=== PATIENT | female | born 1970 | race Caucasian/White ===

== ENCOUNTER 2016-07-24 07:18 | Observation (INO) | payer OTHER ==
[2016-07-24] MEDS ORDERED: CEFAZOLIN 1 GM VIAL ONE (07:27)
[2016-07-24] MEDS ORDERED: METHYLENE BLUE 10 MG/ML VIAL ONE (07:36)
[2016-07-24] MEDS ORDERED: BUPIVACAINE 0.25% 30 ML VIAL ONE (07:36)
[2016-07-24] MEDS ORDERED: HYDROmorphone 1 MG INJECTION IV PRN ×2 (08:32)
[2016-07-24] MEDS ORDERED: FENTANYL 100 MCG/2 ML VIAL IV PRN ×2 (08:32)
[2016-07-24] MEDS ORDERED: MEPERIDINE 25 MG/ML TUBEX IV PRN (08:32)
[2016-07-24] MEDS ORDERED: LABETALOL 20 MG/4 ML SYRINGE IV PRN (08:32)
[2016-07-24] MEDS ORDERED: ONDANSETRON HCL 4 MG/2 ML VIAL IV PRN ×2 (08:32→11:15)
[2016-07-24] MEDS ORDERED: hydrALAZINE 20 MG/ML VIAL IV PRN (08:32)
[2016-07-24] MEDS ORDERED: ONDANSETRON HCL 4 MG ODT TAB PO PRN (08:32)
--- NOTE | 2016-07-24 08:39 | HIM.ANES ---
Anesthesia Evaluation & Plan Diagnoses: ABNORMAL UTERINE AND VAGINAL BLEEDING, UNSPECIFIED (07/24/16) DYSMENORRHEA, UNSPECIFIED (07/24/16) PELVIC AND PERINEAL PAIN (07/24/16) Consented Procedure: TOTAL LAPAROSCOPIC HYSTERECTOMY, AND POSSIBLY TOTAL ABDOMINAL HYSTERECTOMY,CYSTOSCOPY AND BILATERAL SALPINGOOOPHORECTOMY - Focused Review of Systems Cardiac History: No: Hx Cardiac Disorders HEENT: Yes: Hx Vision Problem (CONTACTS), Other HEENT Problems Hx Other HEENT Problems: SEASONAL ALLERGIES Gastrointestinal: No: Hx Gastrointestinal Disorders Neurological/Musculoskeletal: No: Hx Neurological Disorders Psychological: No Hx Mental/Emotional Disorders Blood/Autoimmune: No: Hx AIDS, Hx Hepatitis (type) Smoking Status: Former smoker Surgical History: Yes: Cholecystectomy (2013) Other Surgical History: 2 C-SECTIONS - Focused Physical Exam NPO since: 07/23/161999 Mallampati: Class II Thyromental Distance: Greater than 3 Neck: Full Range of Motion Dental: Normal - no significant findings Cardiovascular/Chest: Normal Respiratory: Lungs clear Any problems with anesthesia, including nausea and vomiting?: No Any relatives with a history of Malignant Hyperthermia?: No Beta Nikolas given (if appropriate): N/A Does the patient have a history of Motion Sickness-: No Other: Allergies Allergy/AdvReac Type Severity Reaction Status Date / Time Sulfa (Sulfonamide Allergy Hives* Verified 07/24/16 07:41 Antibiotics) Home Medications Medication Instructions Recorded Last Taken Type Dextroamphetamine/Amphetamine 15 mg PO DAILY PRN 09/15/12 07/17/16 History [Adderall 15 mg Tablet] Nitrofurantoin Macrocrystal 100 mg PO DAILY PRN 09/15/12 07/22/16 21:00 History [Macrodantin] Zolpidem Tartrate [Ambien] 10 mg PO HS PRN 07/19/16 07/23/16 21:00 History Height and Weight Patient's height 5 ft 11 in Patient's weight 105.233 kg BMI 34.2 Vital Signs Temperature 97.8 F 07/24/16 07:30 Pulse Rate 98 07/24/16 07:30 Respiratory Rate 18 07/24/16 07:30 Blood Pressure 146/86 07/24/16 07:30 Pulse Oxygen Saturation 98 07/24/16 07:30 - Anesthetic Plan Anesthesia Type: General ASA Class: 2 -: I have examined this patient and reviewed the medical record. The patient has been assessed prior to anesthesia. Risks and benefits of anesthesia and anesthetic technique options have been discussed and all questions answered. The patient accepts the risk and desires me to proceed with the planned anesthetic.
[2016-07-24] MEDS ORDERED: MIDAZOLAM 2 MG/2 ML VIAL IV ONE ×2 (09:10→10:00)
[2016-07-24] MEDS ORDERED: MIDAZOLAM 2 MG/2 ML VIAL ONE (09:11)
--- NOTE | 2016-07-24 09:32 | SC.ANESPOS ---
Post-Anesthesia Note LOC: [place] on Calling Post-Anesthesia Assessment: Awake, Returned to Baseline, Hemodynamically Stable , Pain Control Adequate Phase I & II Recovery Complete: Yes Apparent Anesthesia Complication: No : N - Vital Signs Blood Pressure: 146/86 Pulse: 98 Resp Rate: 18 O2 Sat: 98 Temp: 97.8 F
[2016-07-24] MEDS ORDERED: PROPOFOL 200 MG/20 ML VIAL IV ONE (10:00)
[2016-07-24] MEDS ORDERED: GLYCOPYRROLATE 1 MG VIAL IM ONE (10:00)
[2016-07-24] MEDS ORDERED: FENTANYL 250 MCG/5 ML VIAL IV ONE (10:00)
[2016-07-24] MEDS ORDERED: LIDOCAINE 4% 5 ML AMPULE NEB ONE (10:00)
[2016-07-24] MEDS ORDERED: METOCLOPRAMIDE 10 MG/2 ML VIAL IV ONE (10:00)
[2016-07-24] MEDS ORDERED: ONDANSETRON HCL 4 MG/2 ML VIAL IV ONE (10:00)
[2016-07-24] MEDS ORDERED: ROCURONIUM 50 MG/5 ML VIAL IV ONE (10:00)
[2016-07-24] MEDS ORDERED: DEXAMETHASONE 4 MG/ML VIAL IV ONE (10:00)
[2016-07-24] MEDS ORDERED: NEOSTIGMINE 1 MG/1 ML (1:1000) INJ 10 ML MDV IM ONE (10:00)
[2016-07-24] MEDS ORDERED: HYDROmorphone 2 MG/ML VIAL IM ONE (10:00)
[2016-07-24] MEDS ORDERED: OXYCODONE HCL 5 MG TABLET PO PRN (11:15)
--- NOTE | 2016-07-24 11:24 | HIMOPRPT ---
DATE OF PROCEDURE: 07/24/16 PREOPERATIVE DIAGNOSIS: Abnormal uterine bleeding, dysmenorrhea and pelvic pain POSTOPERATIVE DIAGNOSIS: Abnormal uterine bleeding, dysmenorrhea and pelvic pain PROCEDURE: Total laparoscopic hysterectomy with bilateral salpingectomy and cystoscopy. SURGEON: Bob Fletcher MD. Sivan Ramírez MD ANESTHESIA: General endotracheal tube. COMPLICATIONS: None. ESTIMATED BLOOD LOSS: 25 mL. FINDINGS: Normal appearing uterus, tubes, and ovaries. Blue black lesion of the posterior CDS suggestive of endometriosis. Remaining pelvis and abdomen clear. Bilateral ureteral spill and no evidence of bladder trauma on cystoscopy. PROCEDURE IN DETAIL: The patient was taken to the operating room and after successful induction of general endotracheal tube anesthesia, was positioned in Olegario stirrups. The abdomen, perineum, and vagina were prepped and draped as a sterile field and a Slaughter catheter was placed. A 5- millimeter incision was made at the inferior edge of the umbilicus through which a 5-millimeter trocar was passed directly into the peritoneal cavity. A pneumoperitoneum was established and the patient was placed in Trendelenburg. Under direct visualization, an 11- millimeter trocar was placed in the right lower quadrant and a 5-millimeter trocar was placed in the left lower quadrant. A blunt probe was used to clear bowel from the pelvis and the above findings were noted at that time. The right adnexa was retracted medially and the right fallopian tube was resected along it's entire length using the UltraCision Harmonic Scalpel. The incision was extended across the round ligament along the broad ligament to the base of the uterus. The anterior uterine peritoneum was incised and the bladder was taken down with blunt dissection. The left adnexa was retracted medially and the left fallopian tube was resected along it's entire length. The incision was extended across the round ligament and along the broad ligament to the base of the uterus. Both left and right ascending branches of the uterine artery was skeletonized and transected. A sponge stick was placed in the anterior vaginal fornix and the bladder was further taken down with UltraCision and blunt dissection. An anterior colpotomy was performed. The sponge stick was placed in the posterior vaginal fornix and a posterior colpotomy was performed. Starting medial to the right uterine artery pedicle, the uterus and cervix were resected using an intrafascial dissection technique. The specimen was then delivered through the vagina and passed off the operative field. The vaginal cuff was closed with interrupted figureof- eight 0 Vicryl sutures via an extracorporeal suturing technique. The pelvis and abdomen were then irrigated with copious amounts of sterile saline and hemostasis was noted at that time. The bladder was filled with approximately 200 mL of sterile saline,cystoscopy was performed and the above findings were noted at that time. Attention was returned to the abdomen, which was again noted to be hemostatic after dropping the intra-abdominal pressure to 5 mmHg. All trocars were then removed and the pneumoperitoneum was allowed to escape. Skin incisions were closed with interrupted 4-0 Monocryl sutures and Dermabond. Once sponge and instrument counts were correct x3, the patient was awoken from general anesthesia and brought to the recovery room in stable condition. All specimens were sent to pathology.
[2016-07-24] MEDS ORDERED: DIPHENHYDRAMINE 25 MG CAP PO PRN (11:53)
[2016-07-24] MEDS ORDERED: LR 1,000 ML IV SCH (12:00)
[2016-07-24] MEDS: KETOROLAC TROMETH 30 MG/ML VIAL IV SCH ×2 (12:04→18:04)
[2016-07-24] MEDS: OXYCODONE HCL 5 MG TABLET PO PRN ×2 (12:05→15:48)
[2016-07-24] MEDS ORDERED: MEPERIDINE 25 MG/ML TUBEX IV ONE (12:25)
[2016-07-24 12:44] VITALS: BMI 32.3
[2016-07-24] MEDS ORDERED: Vaccine Screening Complete SCH (13:00)
--- NOTE | 2016-07-24 14:02 | SC.ANESPOS ---
Post-Anesthesia Note LOC: Fully Awake Post-Anesthesia Assessment: Awake, Returned to Baseline, Hemodynamically Stable , Pain Control Adequate Phase I & II Recovery Complete: Yes Apparent Anesthesia Complication: No : N PACU Discharge Time: 11:53 - Vital Signs Blood Pressure: 129/60 Pulse: 91 Resp Rate: 18 O2 Sat: 98 Temp: 97.4 F - Comments Anesthesia Discharge Time Report Time 11:53
[2016-07-24 17:51] VITALS: BP 165/71; PULSE 83; TEMP 98.2
--- NOTE | 2016-07-24 18:34 | OBGYNPROG ---
- Subjective Post Op Day: 0 Reports: Abdominal Cramping (Mild), Tolerating Regular Diet, Voiding Freely. Denies: Complaints, Gas Pains, Nausea, Vomitting Pain: Reports: Well Managed - Objective Vital Signs: Temperature: 98.2 F (07/24/16 17:50) HR: 83 (07/24/16 17:50) RR: 17 (07/24/16 17:50) BP: 165/71 (07/24/16 17:50) Pulse Ox: 98 (07/24/16 14:02) GENERAL: Alert, Oriented, No Acute Distress CARDIOVASCULAR/CHEST: Normal. negative: Tachycardia, Irregular RESPIRATORY: Normal - CTA. negative: Rales, Rhonchi, Wheezes ABDOMEN: Bowel Sounds Present, Non-Distended, Soft INCISION: Incision Clean/Dry/Intact Vaginal Bleeding: None EXTERMITIES: Moves All Extremeties. negative: Pain/Tenderness OBGYN Progress Note - ASSESSMENT (1) Abnormal uterine bleeding (AUB) Status: Acute Code(s): N93.9 - ABNORMAL UTERINE AND VAGINAL BLEEDING, UNSPECIFIED Comment: Doing well - PLAN Discharge (Pt requesting discharge)
--- NOTE | 2016-07-24 18:35 | PCM.DCS92 ---
- Primary/Secondary Discharge Diagnoses (1) Abnormal uterine bleeding (AUB) Acute N93.9 - ABNORMAL UTERINE AND VAGINAL BLEEDING, UNSPECIFIED Present on Admission: Yes - HOSPITAL COURSE /Op Complications: None - DISCHARGE INSTRUCTIONS Discharge Disposition: Home Discharge Condition: Good Cognitive Discharge Status: Unimpaired Fuctional Discharge Status: Independent Patient Leaving with Prescriptions?: Yes Prescriptions: Ibuprofen Tablet [Motrin] 800 mg PO Q6-8H PRN #30 tab PRN Reason: Pain Ondansetron HCl [Zofran] 4 mg PO Q6H PRN #15 tab PRN Reason: Nausea/Vomiting Oxycodone HCl/Acetaminophen [Percocet 5-325 mg Tablet] 1 - 2 tab PO Q4H PRN #60 tab PRN Reason: Pain Referrals: Bob Fletcher MD [Staff Physician] - Keep Scheduled Appt - Diet Diet at Discharge: Regular - Activity Activity: Limited, No Heavy Lifting, Pelvic Rest, No Driving No Driving for: Until After Post op Follow-up Appointment - Instructions Call Physician for: Severe Abdominal Cramps, Foul Smelling Discharge, Pain/ Redness in Calf/Leg, Increased Pain at Wound, Redness at Wound, Temperature Above 100.4, Vaginal Bleeding, Drainiage from Wound - Incision Incision, Lacerations, or Tears: Yes - DC Summary Notes Discharge Medications: *See "Discharge Medication List" for a complete list of Home Medications and Discharge Medications.* Obstetric Hospital Course - Admitting Diagnosis Admission Date: 07/24/16 Admission time: 12:14
[2016-07-25] MEDS ORDERED: PNEUMOCOCCAL 0.5 ML VIAL IM ONE (08:00)
== END 2016-07-24 18:56 | disposition home or self-care (01) ==
LOC: SDC 07:18 → MASU 11:52
PROVIDERS: ADMIT Obstetrics & Gynecology; ATTEND Obstetrics & Gynecology
PROC: 0UTC4ZZ Resection of Cervix, Percutaneous Endoscopic Approach (ICD-10-PCS; 2016-07-24)
PROC: 0UT74ZZ Resection of Bilateral Fallopian Tubes, Percutaneous Endoscopic Approach (ICD-10-PCS; 2016-07-24)
PROC: 0UT94ZZ Resection of Uterus, Percutaneous Endoscopic Approach (ICD-10-PCS; principal; 2016-07-24 10:05)
DX: N93.9 Abnormal uterine and vaginal bleeding, unspecified (principal); N94.6 Dysmenorrhea, unspecified; R10.2 Pelvic and perineal pain; N72 Inflammatory disease of cervix uteri; N88.8 Other specified noninflammatory disorders of cervix uteri; N80.0 Endometriosis of uterus; N83.8 Other noninflammatory disorders of ovary, fallopian tube and broad ligament; F17.200 Nicotine dependence, unspecified, uncomplicated; Z86.59 Personal history of other mental and behavioral disorders; Z79.899 Other long term (current) drug therapy
CPT/HCPCS: 58571; 96374; 96375; 96376; J0690; J1100; J1170; J1885; J2175; J2250; J2405; J2710; J2765; J3010; J3490; S0020; Q9968